=== PATIENT | male | born 1935 | race Caucasian/White ===

== ENCOUNTER → 2017-04-09 | Outpatient (CLI) | payer OTHER ==
[~2017-04-09] MED LIST: ASPIRIN EC81 M1; ASPIRIN EC81 M1 PO; CLOPIDOGREL75 MG; CLOPIDOGREL75 MG PO; DIAZEPAM 5 MG5 M1 PO; FERREX 150150 MG; FERREX 150150 MG PO; FISH OIL 1,001000 M2 PO; FISH OIL 1,2001 EAC3 PO; FISH OIL 500 M1 EAC1; HYDROCODON-ACE1 EAC7 PO; LISINOPRIL10 MG PO; NICOTINE TRANSD21 M1 TRANSDERM; PACERONE 200 M200 M1; PACERONE 200 M200 M1 PO; PHISOHEX148 ML; PHISOHEX148 ML TOP; PROTONIX40 M1 PO; RANITIDINE 150150 M1 PO; SIMVASTATIN20 MG; TOPROL XL25 MG; TOPROL XL25 MG PO; ZANTAC 150MG T150 M1 PO; ZOCOR 20 MG TAB20 M1 PO; ZYPREXA2.5 MG; ZYPREXA2.5 MG PO
== END ==
LOC: RAD 09:12
DX: R06.09 Other forms of dyspnea (principal)

== ENCOUNTER 2018-03-03 09:48 | Inpatient (IN) | payer OTHER ==
[~2018-03-03] VITALS: Ht 177.8 cm; Wt 84.4 kg
--- NOTE | ~2018-03-03 | HC ---
[facility] [place] [address] CONSULTATION Name: JUS CADET Room #: 218-P [facility] IN M.R.#: [id number] Admission: 03/03/18 Attend Phys: Wellington Gonzalez MD Discharge: 03/05/18 Date of : 35 Report #: [id number] THIS REPORT FOR: //name// CC: Panfilo Gonzalez MD DATE OF SERVICE: 03/04/2018 PULMONARY CONSULTATION REFERRAL PHYSICIAN: Wellington Gonzalez MD REASON FOR REFERRAL: Pneumothorax. HISTORY OF PRESENT ILLNESS: The patient is an 82-year-old white male who underwent placement of pacemaker. A followup chest x-ray shows small left-sided pneumothorax. A pulmonary consultation was requested. Presently, he denies any dyspnea. He was anticipating going home today. He is rather upset that he may not be able to. Otherwise, denies any chest pain, denies any hemoptysis, nausea, vomiting, diarrhea. PAST MEDICAL HISTORY: Notable for coronary artery disease, undergoing coronary artery bypass surgery in 2012 x 6, sick sinus syndrome, status post permanent pacemaker placement in the past, essential hypertension, dyslipidemia, dysphagia, esophageal stricture, status post dilatations in the past, history of tremors. ALLERGIES: None to medications. HOME MEDICATIONS: List reviewed in the MAR. FAMILY HISTORY: Noncontributory. SOCIAL HISTORY: The patient is . He has smoked in the past, but quit many years ago. Denies any alcohol use. REVIEW OF SYSTEMS: As mentioned above, otherwise 10-point system review negative. PHYSICAL EXAMINATION: GENERAL: He is awake, alert, in no distress. [facility] [address] [place] [address] CONSULTATION Name: JUS CADET Room #: 218-P [facility] IN M.R.#: [id number] Admission: 03/03/18 Attend Phys: Wellington Gonzalez MD Discharge: 03/05/18 Date of : 35 Report #: [id number] VITAL SIGNS: Temperature is 97.8 degrees Fahrenheit, pulse is 60, respiratory rate is 24, blood pressure 146/77 mmHg, saturation is 95%. HEENT: Normocephalic, atraumatic. NECK: Supple, without any lymphadenopathy or thyromegaly. CHEST: Breath sounds are fair bilaterally without any rales or wheezes. CARDIOVASCULAR: Normal S1, S2. No murmurs or gallop. There is no JVD. There is no carotid bruit. Pulses are 2+/4+ bilaterally. ABDOMEN: Soft, nontender, no organomegaly or masses felt. GENITOURINARY: Deferred. RECTAL: Deferred. EXTREMITIES: There is no edema, cyanosis or clubbing. LABORATORY DATA: Portable chest x-ray performed earlier this morning shows a small left-sided pneumothorax encompassing the left upper lobe and also left lower lobe area. It measures approximately 5% pneumothorax. Mild interstitial changes are seen in both bases. A permanent pacemaker and sternal wires are noted in the left upper chest area. Electrolytes normal, creatinine is 1.5. Liver function tests are normal. WBC 9000, hemoglobin 15.6, platelets are normal. Albumin 3.7. IMPRESSION: 1. Iatrogenic small left-sided pneumothorax in this 82-year-old white male with recent placement of a permanent pacemaker. Clinically, he is asymptomatic. 2. Coronary artery disease, status post coronary bypass surgery in 2011. 3. Sick sinus syndrome, status post replacement of permanent pacemaker. 3. Essential hypertension. 4. History of esophageal stricture. 5. Dyslipidemia. RECOMMENDATIONS: The patient is relatively asymptomatic and stable. There is definitely a small left-sided pneumothorax, but will recommend a followup chest x-ray in about 4 hours. If pneumothorax enlarges, would recommend placement of a small-bore chest tube. This was discussed with the patient. He seems somewhat upset that he may not be going home later today. <ELECTRONICALLY SIGNED> By: Bi Lux MD 03/05/18 1507 1223 1806 Bi Lux MD /nt
[~2018-03-03 09:48] MED LIST changes: -SIMVASTATIN20 MG; +SIMVASTATIN20 MG PO
[2018-03-03 10:16] VITALS: BP 137/70
[2018-03-03 10:29] LABS: ABSOLUTE NEUTROPHILS 5.4 thou/uL (1.4-8.2); EOSINOPHILS 2.9 % (0.0-3.0); HEMATOCRIT 45.4 % (42.0-52.0); HEMOGLOBIN 15.6 gm/dL (14.0-18.0); LYMPHOCYTES 25.2 % (24.0-44.0); MCH 30.8 pg (26.0-34.0); MCHC 34.3 g/dL (28.0-37.0); MCV 89.7 fL (80.0-100.0); MONOCYTES 10.9 % (1.0-8.0); PLATELET COUNT 185 thou/uL (150-400); RBC 5.06 mil/uL (4.50-6.00)
[2018-03-03 10:41] LABS: APTT 27.8 Seconds (24.5-32.8); PROTIME 10.6 Seconds (9.3-11.4)
[2018-03-03 10:42] LABS: CALCIUM 8.6 mg/dL (8.5-10.1); CREATININE 1.5 mg/dL (0.7-1.3); POTASSIUM 4.1 mmol/L (3.5-5.1)
[2018-03-03 10:47] LABS: ALBUMIN 3.7 g/dL (3.4-5.0); TOTAL BILIRUBIN 0.8 mg/dL (<0.1-1.0); TOTAL PROTEIN 7.8 g/dL (6.4-8.2)
[2018-03-03 15:30] VITALS: BP 143/78
[2018-03-03 20:01] VITALS: BP 157/73
[2018-03-03 23:56] VITALS: BP 148/76
[2018-03-04 05:46] VITALS: BP 119/59
[2018-03-04 05:47] VITALS: BP 119/59
[2018-03-04 08:15] VITALS: BP 122/64
[2018-03-04 11:29] VITALS: BP 146/77
[2018-03-04 15:53] VITALS: BP 128/74
[2018-03-04 20:15] VITALS: BP 124/70
[2018-03-05 04:55] VITALS: BP 147/67
[2018-03-05 07:25] VITALS: BP 101/63
[2018-03-05 11:04] VITALS: BP 101/63
== END 2018-03-05 11:50 | disposition home or self-care (01) | DRG 982 ==
LOC: CATH 09:48 → 2N 15:36 → CATH 15:37 → 2N 15:37 → ENTRNSPT 03-05 11:16 → EDTRNSPTSTS 03-05 11:33 → 2N 03-05 11:50
PROVIDERS: Internal Medicine Cardiovascular Disease
PROC: 0JPT0PZ Removal of Cardiac Rhythm Related Device from Trunk Subcutaneous Tissue and Fascia, Open Approach (ICD-10-PCS; principal; 2018-03-03)
PROC: 02PA3MZ Removal of Cardiac Lead from Heart, Percutaneous Approach (ICD-10-PCS; principal; 2018-03-03)
PROC: 0JH606Z Insertion of Pacemaker, Dual Chamber into Chest Subcutaneous Tissue and Fascia, Open Approach (ICD-10-PCS; principal; 2018-03-03)
PROC: 02H63JZ Insertion of Pacemaker Lead into Right Atrium, Percutaneous Approach (ICD-10-PCS; principal; 2018-03-03)
DX: J95.811 Postprocedural pneumothorax (principal); T82.110A Breakdown (mechanical) of cardiac electrode, initial encounter; J93.83 Other pneumothorax; Z45.018 Encounter for adjustment and management of other part of cardiac pacemaker; I25.10 Atherosclerotic heart disease of native coronary artery without angina pectoris; Z95.1 Presence of aortocoronary bypass graft; I10 Essential (primary) hypertension; E78.5 Hyperlipidemia, unspecified
CPT/HCPCS: 10081; 62110; 62900

== ENCOUNTER → 2018-03-11 | Outpatient (CLI) | payer OTHER | LOC: RAD 12:58 | DX: J84.9 Interstitial pulmonary disease, unspecified (principal) ==

== ENCOUNTER 2018-10-03 06:55 | Emergency (ER) | payer OTHER ==
[~2018-10-03] VITALS: Ht 177.8 cm; Wt 83.9 kg
[~2018-10-03 06:55] MED LIST changes: -ASPIRIN EC81 M1; -TOPROL XL25 MG
[2018-10-03 07:27] LABS: BASOPHILS 0.3 % (0.0-2.0); HEMATOCRIT 50.9 % (42.0-52.0); HEMOGLOBIN 17.2 gm/dL (14.0-18.0); LYMPHOCYTES 2.4 % (24.0-44.0); MCH 30.8 pg (26.0-34.0); MCHC 33.7 g/dL (28.0-37.0); MCV 91.3 fL (80.0-100.0); MONOCYTES 4.6 % (1.0-8.0); PLATELET COUNT 177 thou/uL (150-400); POLYS 92.7 % (36.0-66.0); RBC 5.58 mil/uL (4.50-6.00); RDW 14.8 % (10.5-14.5)
[2018-10-03 07:36] LABS: CALCIUM 9.8 mg/dL (8.5-10.1); CREATININE 1.9 mg/dL (0.7-1.3)
[2018-10-03 07:42] LABS: DIRECT BILIRUBIN 0.2 mg/dL (<0.1-0.3); TOTAL BILIRUBIN 0.9 mg/dL (<0.1-1.0); TOTAL PROTEIN 8.7 g/dL (6.4-8.2)
[2018-10-03 08:51] LABS: ICTOTEST (BILI CONFIRMATORY) Negative (Negative); URINE BILIRUBIN NEGATIVE (Negative); URINE BLOOD TRACE (Negative); URINE CLARITY SL HAZY; URINE COLOR DK YELLOW; URINE GLUCOSE-RANDOM* NEGATIVE (Negative); URINE KETONES TRACE (Negative); URINE LEUKOCYTES NEGATIVE (Negative); URINE NITRITE NEGATIVE (Negative); URINE PROTEIN (DIPSTICK) 2+ (Negative); URINE UROBILINOGEN 0.2 E.U./dl (0.2-1.0)
[2018-10-03 09:00] LABS: CASTS None Seen /LPF (None Seen); HYALINE CASTS 0-3 Few /LPF (None Seen); SQUAMOUS 4-10 Moderate /LPF (0-3)
[2018-10-03 09:01] LABS: AMORPHOUS URATES Moderate /LPF (None Seen); BACTERIA 1-9 Few /HPF (None Seen); URINE RBC 0-2 Rare /HPF (0-2); URINE WBC 0-5 Rare /HPF (0-5)
[2018-10-03] MEDS ORDERED: ZOFRAN ODT4 MG PO (10:07)
[2018-10-03 10:20] VITALS: BP 109/49
== END 2018-10-03 10:21 | disposition home or self-care (01) ==
LOC: ER 06:55
PROVIDERS: Emergency Medicine
DX: R10.33 Periumbilical pain (principal); D72.829 Elevated white blood cell count, unspecified; R19.7 Diarrhea, unspecified; R11.2 Nausea with vomiting, unspecified; N28.9 Disorder of kidney and ureter, unspecified; R74.0 Nonspecific elevation of levels of transaminase and lactic acid dehydrogenase [LDH]; F17.210 Nicotine dependence, cigarettes, uncomplicated; I10 Essential (primary) hypertension; E78.00 Pure hypercholesterolemia, unspecified; I25.10 Atherosclerotic heart disease of native coronary artery without angina pectoris; F03.90 Unspecified dementia, unspecified severity, without behavioral disturbance, psychotic disturbance, mood disturbance, and anxiety; Z85.828 Personal history of other malignant neoplasm of skin; Z85.038 Personal history of other malignant neoplasm of large intestine; Z86.73 Personal history of transient ischemic attack (TIA), and cerebral infarction without residual deficits

== ENCOUNTER 2018-10-05 09:36 | Inpatient (IN) | payer OTHER ==
[~2018-10-05] VITALS: Ht 177.8 cm; Wt 76.9 kg
[~2018-10-05 09:36] MED LIST changes: +ZOFRAN ODT4 MG PO
[2018-10-05 09:39] VITALS: BP 124/44
[2018-10-05 11:06] LABS: HEMATOCRIT 47.2 % (42.0-52.0); HEMOGLOBIN 15.9 gm/dL (14.0-18.0); MCH 30.7 pg (26.0-34.0); MCHC 33.7 g/dL (28.0-37.0); PLATELET COUNT 145 thou/uL (150-400); RBC 5.18 mil/uL (4.50-6.00); RDW 14.9 % (10.5-14.5); WBC 8.2 thou/uL (4.0-11.0)
[2018-10-05 11:13] LABS: CALCIUM 8.9 mg/dL (8.5-10.1); CREATININE 1.6 mg/dL (0.7-1.3); POTASSIUM 4.5 mmol/L (3.5-5.1)
[2018-10-05 11:18] LABS: ALBUMIN 3.3 g/dL (3.4-5.0); DIRECT BILIRUBIN 0.2 mg/dL (<0.1-0.3); TOTAL BILIRUBIN 0.6 mg/dL (<0.1-1.0); TOTAL PROTEIN 7.4 g/dL (6.4-8.2)
[2018-10-05 12:07] VITALS: BP 144/72
[2018-10-05 12:09] VITALS: BP 144/72
[2018-10-05 12:11] LABS: ABSOLUTE NEUTROPHILS 5.7 thou/uL (1.4-8.2)
[2018-10-05 12:12] LABS: ANISOCYTOSIS 1+; OVALOCYTES FEW
[2018-10-05] MEDS ORDERED: CARDIZEM30 MG PO (12:16)
[2018-10-05] MEDS ORDERED: QUINAPRIL HCL20 MG PO (12:16)
[2018-10-05] MEDS ORDERED: HYDROCHLOROTHIA25 M2 PO (12:16)
[2018-10-05] MEDS ORDERED: LIPITOR40 MG PO (12:17)
[2018-10-05] MEDS ORDERED: COUMADIN 4 MG TA4 M1 PO (12:17)
[2018-10-05] MEDS ORDERED: PROTONIX40 M1 PO (12:19)
[2018-10-05] MEDS ORDERED: LOPRESSOR25 PO (12:19)
[2018-10-05] MEDS ORDERED: SIMVASTATIN40 MG PO (12:19)
[2018-10-05] MEDS ORDERED: FISH OIL 1,2001 EAC4 PO (12:20)
[2018-10-05] MEDS ORDERED: ASPIR 8181 MG PO (12:20)
[2018-10-05] MEDS ORDERED: VALIUM5 MG PO (12:20)
[2018-10-05 19:10] VITALS: BP 123/77
--- NOTE | 2018-10-05 22:10 | EKG ---
[address] [place] [address] ELECTROCARDIOGRAM REPORT Name: JUS CADET Room #: 418-P ADM IN M.R.#: [id number] Admission: 10/05/18 Attend Phys: Michelle Golden Discharge: Date of : 35 Report #: [id number] THIS REPORT FOR: //name// [facility] ED Test Date: 2018-10-05 Test Time: 10:46:31 Pat Name: JUS CADET Department: Room: [facility] Gender: M Senior C Web Developer: as : 1935 Requested By: Luciana Guerra Order Number: [id number] MD: Wellington Gonzalez Measurements Intervals [place] Rate: 60 P: MT: 242 QRS: 94 QRSD: 132 T: 15 QT: 433 QTc: 433 Interpretive Statements Atrial-paced complexes Prolonged MT interval RBBB and LPFB Baseline wander in lead(s) V6 Compared to ECG 09/02/2016 08:15:14 First degree AV block now present Ventricular-paced complex(es) or rhythm no longer present Electronically Signed On 10-05-2018 22:09:53 STAMPING MACHINE OPERATOR by Wellington Gonzalez [email or web address] <ELECTRONICALLY SIGNED> By: Wellington Gonzalez MD 10/05/18 2209 1046 1046 Wellington Gonzalez MD /EPI
--- NOTE | 2018-10-06 02:20 | NUR ---
PROGRESS PT A/O X4. ABLE TO USE CALL LIGHT AND MAKE NEEDS KNOWN. NO NAUSEA AND VOMITING OR DIARRHEA THIS SHIFT.NORMAL SALINE INFUSING AT 125CC/HR ORDERED INTO NEW IV STARTED IN LUF. TOLERATING CLEAR LIQUIDS, VOIDING QS. POSSIBLE REHAB CONSULT FOR WEAKNESS. BUN AND CREATININE ELEVATED. CONTINUE TO MONITOR INTAKE AND OUTPUT, MONITOR AND TREAT NAUSEA AND VOMITING. ASSIST WITH ACTIVITIES FOR SAFETY UP WITH 1.
[2018-10-06 06:08] LABS: URINE BILIRUBIN NEGATIVE (Negative); URINE BLOOD NEGATIVE (Negative); URINE CLARITY CLEAR; URINE COLOR YELLOW; URINE GLUCOSE-RANDOM* NEGATIVE (Negative); URINE KETONES TRACE (Negative); URINE LEUKOCYTES NEGATIVE (Negative); URINE NITRITE NEGATIVE (Negative); URINE PROTEIN (DIPSTICK) NEGATIVE (Negative); URINE SPECIFIC GRAVITY 1.025 (1.005-1.035); URINE UROBILINOGEN 0.2 E.U./dl (0.2-1.0)
[2018-10-06 07:15] VITALS: BP 126/71
[2018-10-06 10:15] LABS: CALCIUM 8.3 mg/dL (8.5-10.1); CREATININE 1.3 mg/dL (0.7-1.3); POTASSIUM 3.9 mmol/L (3.5-5.1)
--- NOTE | 2018-10-06 12:21 | NUR ---
ASSUMED CARE OF PT AT 0700. ASSESSMENT COMPLETED AND CHARTED. A&O,X4. DENIES PAIN, N/V/D. PT DOES NOT APPEAR TO BE IN ANY DISTRESS. ROOM AIR, NO SOA. ACTIVE BOWEL SOUNDS, LAST BM YESTERDAY. NO PROBLEMS VOIDING, PER URINAL NOTED. TOLERATING CLEARS DIET, TO ADVANCE DIET ORDERED. PT IS CURRENTLY SITTING UP IN THE CHAIR. WILL CONTINUE TO MONITOR.
[2018-10-06 14:04] VITALS: BP 126/71
--- NOTE | 2018-10-06 14:36 | NUR ---
NEW DISCHARGE ORDERS. PT TOLERATING REGULAR LUNCH, NO N/V/D. UP TO WALK IN HALLWAYS. D/C INFORMATION GIVEN TO PT AND DAUGHTER AT BEDSIDE. NO NEW SCRIPTS. IV REMOVED, NO BLEEDING NOTED. PT HAD CLOTHES, DENTURES, NECKLACE. PT LEFT IN STABLE CONDITION VIA WHEELCHAIR AT 14:35.
--- NOTE | 2018-10-06 14:43 | NUR ---
ASSESSMENT-PT LIVES AT THE [facility] WITH HIS JUST [address] FROM [facility]. PT SAYS HE WALKS ON HIS WON AND DOES HIS OWN ADLS. IS 78 YEARS OLD AND IN GOOD HEALTH AND ABLE TO ASSIST HIME. THEY AHVE A DTR HERE IN THE AREA TOO. BOTH PT AND DRIVE. PT SAYS HE HAS NOT HAD ANY HH SERVICES IN THE PAST. PT DENIES ANY DC NEEDS AT THIS TIME.
--- NOTE | 2018-10-07 09:23 | H ---
[facility] [place] [address] [address] HISTORY AND PHYSICAL Name: JUS CADET Room #: 418-P [facility] IN M.R.#: [id number] Admission: 10/05/18 Attend Phys: Michelle Golden Discharge: 10/06/18 Date of : 35 Report #: [id number] THIS REPORT FOR: //name// CC: Panfilo Benedict DATE OF SERVICE: 10/06/2018 CHIEF COMPLAINT: Nausea, vomiting, diarrhea. HISTORY OF PRESENT ILLNESS: The patient is an 82-year-old gentleman who came to the Emergency Room with a 4-day history of diarrhea. He has had watery bowel movements. He has had no abdominal pain, no bleeding. He has had some nausea, but no major vomiting until yesterday in the Emergency Room. He has had no fever. Overnight, he feels much improved. He has had no GI symptoms at all. He has been tolerating clear liquids without incident. PAST MEDICAL HISTORY: Familial tremor, hypertension, dyslipidemia, remote history of colon cancer with right hemicolectomy in 2003. He has had previous esophageal stricture with dilatation 2010, coronary artery disease, CABG in 2014, mild dementia. PAST SURGICAL HISTORY: As above. FAMILY HISTORY: Noncontributory. SOCIAL HISTORY: No chronic alcohol or tobacco use. ALLERGIES: None. MEDICATIONS: Zocor, Protonix, metoprolol, Valium, aspirin, fish oil. REVIEW OF SYSTEMS: Denies headache, chest pain, shortness of breath, abdominal pain, nausea, vomiting, diarrhea, constipation, dysuria, syncope. OBJECTIVE: VITAL SIGNS: Temperature 36.2, pulse 61, respirations 19, blood pressure 126/71, O2 sat 96% on room air. GENERAL: He is awake and alert, in no distress. HEAD AND NECK: Unremarkable. LUNGS: Clear. HEART: Regular. ABDOMEN: Soft, normoactive bowel sounds. No rebound or guarding. EXTREMITIES: No cyanosis, clubbing or edema. NEUROLOGIC: Motor strength 4/5 throughout. LABORATORY DATA: Creatinine has normalized to 1.3. Other laboratory data [address] [address] HISTORY AND PHYSICAL Name: JUS CADET Room #: 418-P [facility] IN M.R.#: [id number] Admission: 10/05/18 Attend Phys: Michelle Golden Discharge: 10/06/18 Date of : 35 Report #: [id number] negative including normal white count. UA is negative. ASSESSMENT: Gastroenteritis. PLAN: He has responded to conservative treatment overnight. Advance his diet and activity. If he can tolerate this, he can go home later today. <ELECTRONICALLY SIGNED> By: Matt Grimm MD 10/07/18 0923 1203 1214 Matt Grimm MD /nt
--- NOTE | 2018-10-09 10:04 | D ---
[facility] [place] [address] DISCHARGE SUMMARY Name: JUS CADET Room #: 418-P DIS IN M.R.#: [id number] Admission: 10/05/18 Attend Phys: Michelle Golden Discharge: 10/06/18 Date of : 35 Report #: [id number] THIS REPORT FOR: //name// CC: Panfilo Benedict DATE OF SERVICE: 10/06/2018 FINAL DIAGNOSIS: Acute gastroenteritis. HOSPITAL COURSE: The patient was admitted with nausea, vomiting and diarrhea. He had a slightly elevated creatinine, which was consistent with a prerenal state from his GI loss. He was treated symptomatically and improved overnight with IV fluids. His creatinine normalized to 1.3. He was tolerating a regular diet. Urinalysis was negative. Urine culture was negative and he was up and walking. He had no other interval complication. DISPOSITION: He is discharged home with diet and activity as tolerated. Follow up with Dr. Benedict in 2-4 weeks. Resume usual medications. <ELECTRONICALLY SIGNED> By: Matt Grimm MD 10/09/18 1004 1321 1354 Matt Grimm MD /nt
== END 2018-10-06 14:30 | disposition home or self-care (01) | DRG 391 ==
LOC: ER 09:36 → EROBS 11:49 → 4E 11:49 → ENTRNSPT 10-06 14:26 → EDTRNSPTSTS 10-06 14:29 → 4E 10-06 14:30
PROVIDERS: Emergency Medicine; Internal Medicine Geriatric Medicine; ADMIT Internal Medicine
DX: K52.9 Noninfective gastroenteritis and colitis, unspecified (principal); N17.0 Acute kidney failure with tubular necrosis; I10 Essential (primary) hypertension; E78.00 Pure hypercholesterolemia, unspecified; I25.10 Atherosclerotic heart disease of native coronary artery without angina pectoris; F03.90 Unspecified dementia, unspecified severity, without behavioral disturbance, psychotic disturbance, mood disturbance, and anxiety; F17.210 Nicotine dependence, cigarettes, uncomplicated; Z86.73 Personal history of transient ischemic attack (TIA), and cerebral infarction without residual deficits; Z85.038 Personal history of other malignant neoplasm of large intestine; Z85.828 Personal history of other malignant neoplasm of skin; Z95.1 Presence of aortocoronary bypass graft; Z79.82 Long term (current) use of aspirin; Z79.899 Other long term (current) drug therapy
CPT/HCPCS: 10084

== ENCOUNTER → 2019-10-07 | Outpatient (CLI) | payer OTHER ==
[~2019-10-07] VITALS: Ht 177.8 cm; Wt 79.4 kg
[~2019-10-07] MED LIST changes: +ASPIR 8181 MG PO; +CARDIZEM30 MG PO; +COUMADIN 4 MG TA4 M1 PO; +FISH OIL 1,2001 EAC4 PO; +HYDROCHLOROTHIA25 M2 PO; +LIPITOR40 MG PO; +LOPRESSOR25 PO; +QUINAPRIL HCL20 MG PO; +SIMVASTATIN40 MG PO; +VALIUM5 MG PO
--- NOTE | 2019-10-08 16:06 | PATH ---
[facility] [address] [place] [address] PATHOLOGY RPT PROCEDURE Name: JUS FAITH Room #: REG CL M.R.#: [id number] Admission: 10/07/19 Date of : 35 Discharge: Report #: [id number] Path Case #: [id number] LCA Accession Number: [id number] . 01 Material submitted: . PART A: colon - POLYP AT DESCENDING COLON. Modifiers: descending PART B: colon - POLYP AT SIGMOID. Modifiers: sigmoid PART C: rectum - POLYP AT RECTUM . 01 Clinical history: . Dysphagia, history of polyps . 02 Diagnosis: A. Polyp, at descending colon, endoscopic biopsy: - Tubular adenoma. - Negative for high-grade dysplasia. . B. Polyp, at sigmoid, endoscopic biopsy: - Lymphoid aggregate and hyperplastic changes. - Negative for dysplasia. . C. Polyp, at rectum, endoscopic biopsy: - Hyperplastic polyp. - Negative for dysplasia. . (IUV:jonnie; 10/08/2019) MBR 10/08/2019 1316 Local . 02 Electronically signed: . Sari Stockton MD, Pathologist NPI- [id number] . 01 Gross description: . A. The specimen is received in formalin, labeled "Jus Faith, polyp at descending colon". Received are two segments of pale causey soft tissue measuring 0.5 cm each in maximum dimensions. The specimen is submitted entirely in cassette A1. . B. The specimen is received in formalin, labeled "Jus Faith, polyp at sigmoid". Received is a segment of light brown soft tissue measuring 0.3 cm in maximum dimensions. The specimen is submitted entirely in cassette B1. . C. The specimen is received in formalin, labeled "Jus Faith, polyp at rectum x2". Received is a segment of pale causey soft tissue measuring 0.3 cm in maximum dimensions. The specimen is submitted entirely in cassette C1. Upon careful inspection and filtration, no additional tissue [address] [address] PATHOLOGY RPT PROCEDURE Name: JUS FAITH Room #: REG [facility].#: [id number] Admission: 10/07/19 Date of : 35 Discharge: Report #: [id number] Path Case #: [id number] is found remaining within the container. (CAA; 10/07/2019) QAC/QAC 10/07/2019 1538 Local . 02 Pathologist provided ICD-10: D12.4, K63.9, K62.1 . 02 CPT . 631867, 974901, 184592 Specimen Comment: A courtesy copy of this report has been sent to [phone] Specimen Comment: Report sent to Performed at: [address], [place] [id number] MD Taiwo Bar MD Phone: [phone] Performed at: [address] [id number] MD Sari Stockton MD Phone: [phone]
--- NOTE | 2019-10-14 10:57 | P ---
[facility] [place] [address] PROCEDURE REPORT Name: JUS CADET Room #: REG [facility].#: [id number] Admission: 10/07/19 Attend Phys: Michael Devi Discharge: Date of : 35 Report #: [id number] THIS REPORT FOR: //name// CC: Kevin Benedict DATE OF SERVICE: 10/07/2019 PROCEDURE PERFORMED: Colonoscopy with biopsies. HISTORY OF PRESENT ILLNESS: The patient is an 83-year-old male with a history of colon cancer, status post right hemicolectomy. Last colonoscopy by myself was in 2016. He had several tubular adenomatous polyps removed at that time. He is here for routine followup. DESCRIPTION OF PROCEDURE: The risks and benefits of the procedure were explained to the patient, those risks including but not limited to bleeding, perforation and the risk of sedation. He understood these risks and gave informed consent. Sedation was given using propofol per anesthesia. Next, a digital rectal exam was initially performed, which was normal. Next, using a standard Olympus colonoscope, the scope was placed in the patient's anus and advanced under direct vision to the right colon, at which point, the surgical anastomosis was once again noted. This was well healed and widely patent. The scope was then slowly withdrawn. The remaining transverse colon was normal. In the descending colon, a 4 mm sessile polyp was noted. This was removed with cold forceps. In the sigmoid colon, multiple diverticula were noted. No evidence of inflammation. A 3 mm sessile polyp was noted and removed with cold forceps. In the rectum, two 3 mm sessile polyps, both removed with cold forceps. On retroflexion, small nonbleeding internal hemorrhoids were noted. The scope was then withdrawn and the procedure terminated. The patient tolerated the procedure well. IMPRESSION: 1. Small colonic polyps as described above. 2. Sigmoid diverticulosis. 3. Internal hemorrhoids. 4. Otherwise, normal colonoscopy. RECOMMENDATIONS: 1. Await biopsy results. 2. Observe at this point due to the patient's age. [address] [address] PROCEDURE REPORT Name: JUS CADET Room #: REG [facility] Valeria#: [id number] Admission: 10/07/19 Attend Phys: Michael Devi Discharge: Date of : 35 Report #: [id number] Thank you for allowing me to participate in his care. <ELECTRONICALLY SIGNED> By: Michael Starr MD 10/14/19 1057 1044 2048 Michael Starr MD /nt
--- NOTE | 2019-10-14 10:57 | P ---
[facility] [place] [address] PROCEDURE REPORT Name: JUS CADET Room #: REG [facility].#: [id number] Admission: 10/07/19 Attend Phys: Michael Devi Discharge: Date of : 35 Report #: [id number] THIS REPORT FOR: //name// CC: Kevin Benedict DATE OF SERVICE: 10/07/2019 PROCEDURE PERFORMED: Upper endoscopy with esophageal dilation. HISTORY OF PRESENT ILLNESS: The patient is an 83-year-old male with recurrent dysphagia, underwent an upper endoscopy by myself in 2016. Last upper endoscopy being in 2016 with dilation at that time. He has a known Schatzki's ring. He is having dysphagia again to solids to the point of regurgitation. He also has a previous history of colon cancer and colon polyps. He is scheduled for EGD and colonoscopy today. He has a history of reflux and takes PPI therapy on a daily basis. DESCRIPTION OF PROCEDURE: The risks and benefits of the procedure were explained to the patient, those risks including but not limited to bleeding, perforation and the risk of sedation. He understood these risks and gave informed consent. Sedation was given using propofol per anesthesia. Next, using a standard Olympus upper endoscope, the scope was placed in the patient's mouth and advanced under direct vision through the esophagus, stomach and into the second portion of the duodenum. The upper and mid esophagus was normal in appearance other than being mildly tortuous. In the distal esophagus, once again a Schatzki's ring was noted. The scope did advance through this area with minimal resistance. Upon entering the stomach, again a medium-sized hiatal hernia was noted. Overall, the gastric mucosa was normal. The pylorus was normal and patent. The duodenal bulb, first and second portion were all normal. The scope was then brought back up into the patient's stomach and a Savary guidewire was inserted through the scope, leaving the guidewire in place as the scope was then withdrawn. Next, a 42-Citizen [place] followed by a 45-Citizen [place] Savary dilation was performed with replacing the scope in between each time. After the 45-[place]izen [place], there was a mucosal tear at the Schatzki's ring. No further dilations were performed. At this point, the scope was then withdrawn and the procedure terminated. The patient tolerated the procedure well. IMPRESSION: 1. Schatzki's ring, status post dilation as described above. 2. Hiatal hernia. 3. Otherwise, normal upper endoscopy. RECOMMENDATIONS: 1. Observe the patient post-dilation. [address] [address] PROCEDURE REPORT Name: JUS CADET Room #: REG [facility]#: [id number] Admission: 10/07/19 Attend Phys: Michael Devi Discharge: Date of : 35 Report #: [id number] 2. We will proceed with colonoscopy next today. Thank you for allowing me to participate in his care. <ELECTRONICALLY SIGNED> By: Michael Starr MD 10/14/19 1057 1042 2046 Michael Starr MD /nt
== END | disposition home or self-care (01) ==
LOC: GI 07:44
DX: Z12.11 Encounter for screening for malignant neoplasm of colon (principal); Z85.038 Personal history of other malignant neoplasm of large intestine; Z86.010 Personal history of colon polyps; D12.4 Benign neoplasm of descending colon; K62.1 Rectal polyp; K63.9 Disease of intestine, unspecified; K57.30 Diverticulosis of large intestine without perforation or abscess without bleeding; K64.8 Other hemorrhoids; K22.2 Esophageal obstruction; K44.9 Diaphragmatic hernia without obstruction or gangrene; R13.19 Other dysphagia; K21.9 Gastro-esophageal reflux disease without esophagitis; I10 Essential (primary) hypertension; I25.10 Atherosclerotic heart disease of native coronary artery without angina pectoris; E78.00 Pure hypercholesterolemia, unspecified; Z98.890 Other specified postprocedural states; Z79.899 Other long term (current) drug therapy; Z87.891 Personal history of nicotine dependence; Z95.0 Presence of cardiac pacemaker; Z95.1 Presence of aortocoronary bypass graft; Z85.828 Personal history of other malignant neoplasm of skin; Z98.0 Intestinal bypass and anastomosis status; Z86.73 Personal history of transient ischemic attack (TIA), and cerebral infarction without residual deficits; Z79.82 Long term (current) use of aspirin
CPT/HCPCS: 62110; 62900

== ENCOUNTER → 2020-02-12 | Outpatient (CLI) | payer OTHER | LOC: SJCVC 10:31 | DX: R94.31 Abnormal electrocardiogram [ECG] [EKG] (principal); I45.10 Unspecified right bundle-branch block; I25.10 Atherosclerotic heart disease of native coronary artery without angina pectoris; I48.0 Paroxysmal atrial fibrillation; I10 Essential (primary) hypertension; E78.5 Hyperlipidemia, unspecified; G30.1 Alzheimer's disease with late onset; F02.80 Dementia in other diseases classified elsewhere, unspecified severity, without behavioral disturbance, psychotic disturbance, mood disturbance, and anxiety; Z95.0 Presence of cardiac pacemaker ==

== ENCOUNTER → 2020-08-15 | Outpatient (CLI) | payer OTHER | LOC: SJCVC 13:00 | PROVIDERS: ATTEND Internal Medicine | DX: R94.31 Abnormal electrocardiogram [ECG] [EKG] (principal); I45.10 Unspecified right bundle-branch block; I25.10 Atherosclerotic heart disease of native coronary artery without angina pectoris; I48.0 Paroxysmal atrial fibrillation; I10 Essential (primary) hypertension; E78.5 Hyperlipidemia, unspecified; G30.1 Alzheimer's disease with late onset; F02.80 Dementia in other diseases classified elsewhere, unspecified severity, without behavioral disturbance, psychotic disturbance, mood disturbance, and anxiety; Z95.0 Presence of cardiac pacemaker; Z95.1 Presence of aortocoronary bypass graft; Z79.82 Long term (current) use of aspirin; Z79.899 Other long term (current) drug therapy; Z87.891 Personal history of nicotine dependence ==

== ENCOUNTER → 2021-03-02 | Outpatient (CLI) | payer OTHER | LOC: SJCVC 10:26 | PROVIDERS: ATTEND Internal Medicine | DX: R94.31 Abnormal electrocardiogram [ECG] [EKG] (principal); I45.10 Unspecified right bundle-branch block; I25.10 Atherosclerotic heart disease of native coronary artery without angina pectoris; I48.0 Paroxysmal atrial fibrillation; I10 Essential (primary) hypertension; E78.2 Mixed hyperlipidemia; G30.1 Alzheimer's disease with late onset; F02.80 Dementia in other diseases classified elsewhere, unspecified severity, without behavioral disturbance, psychotic disturbance, mood disturbance, and anxiety; Z95.0 Presence of cardiac pacemaker; Z79.82 Long term (current) use of aspirin; Z79.899 Other long term (current) drug therapy; Z87.891 Personal history of nicotine dependence ==

== ENCOUNTER 2021-07-18 17:47 | Inpatient (IN) | payer OTHER ==
[~2021-07-18] VITALS: Ht 177.8 cm; Wt 83.7 kg
[2021-07-18 17:52] VITALS: BP 125/77; BP 135/70
[2021-07-18 19:50] LABS: ABSOLUTE NEUTROPHILS 9.6 thou/uL (1.4-8.2); BASOPHILS 0.8 % (0.0-2.0); EOSINOPHILS 0.9 % (0.0-3.0); HEMATOCRIT 40.9 % (42.0-52.0); HEMOGLOBIN 13.6 gm/dL (14.0-18.0); LYMPHOCYTES 16.7 % (24.0-44.0); MCH 30.3 pg (26.0-34.0); MCHC 33.2 g/dL (28.0-37.0); MCV 91.4 fL (80.0-100.0); POLYS 74.6 % (36.0-66.0); RBC 4.48 mil/uL (4.50-6.00); RDW 15.7 % (10.5-14.5); WBC 12.9 thou/uL (4.0-11.0)
[2021-07-18 19:57] LABS: CREATININE 1.6 mg/dL (0.7-1.3)
[2021-07-18 20:02] LABS: ALBUMIN 3.3 g/dL (3.4-5.0); TOTAL BILIRUBIN 0.7 mg/dL (0.2-1.0); TOTAL PROTEIN 7.3 g/dL (6.4-8.2)
[2021-07-18 20:03] LABS: POTASSIUM 4.8 mmol/L (3.5-5.1)
[2021-07-18 20:45] LABS: PLATELET COUNT 151 thou/uL (150-400)
[2021-07-19] VITALS (7 sets, daily range): BP systolic 106–143; BP diastolic 49–71
--- NOTE | 2021-07-19 01:29 | NUR ---
ATTEMPTED TO GIVE REPORT AT THIS TIME, TOLD NURSE IS UNAVAILABLE TAKING A PT TO CT
--- NOTE | 2021-07-19 06:03 | NUR ---
PT ARRIVED TO UNIT FROM ED AROUND 0200. PT ASSESSED TO BE AOX3 MALE THAT IS [place] AND HAS SUSPECTED GI BLEED. COMPLETED ALL ADMIT CHARTING AND CHECKLIST, CONSENTS TO BE SIGNED DURING THE DAY BY DPOA PER PT. PT RUNS NSR WITH 1* HB. PT RESTED THROUGHOUT THE REST OF THE NIGHT WITH NO COMPLAINTS, VSS. NEED TO CLARIFY WITH HIM AND FAMILY DURING THE DAY WHAT HIS CODE STATUS IS. WILL CONTINUE TO MONITOR.
[2021-07-19 08:41] LABS: CALCIUM 8.2 mg/dL (8.5-10.1); CREATININE 1.4 mg/dL (0.7-1.3); POTASSIUM 4.2 mmol/L (3.5-5.1)
[2021-07-19 10:45] LABS: HEMATOCRIT 29.1 % (42.0-52.0); MCH 30.1 pg (26.0-34.0); MCHC 33.7 g/dL (28.0-37.0); MCV 89.3 fL (80.0-100.0); RBC 3.25 mil/uL (4.50-6.00); RDW 15.7 % (10.5-14.5); WBC 15.9 thou/uL (4.0-11.0)
[2021-07-19 10:51] LABS: HEMOGLOBIN 9.8 gm/dL (14.0-18.0)
--- NOTE | 2021-07-19 14:01 | NUR ---
Assumed pt care at 7am.Assessment completed.vss.Pt in bed very anxious about going for gi procedure today. Dpoa here, signed all admission paper work. Dr Goss and Bradley here,order noted. Pt dpoa notified about pt going for egd today at 1400. Pt was picked up by gi lab rns at 1345. Will continue to monitor.
[2021-07-19 15:33] LABS: APTT 27.1 Seconds (24.5-32.8); INR 1.05; PROTIME 11.4 Seconds (10.5-12.1)
[2021-07-20 03:06] LABS: GLYCOHEMOGLOBIN (HGB A1C) 6.2 % (4.8-5.6)
[2021-07-20 03:07] VITALS: BP 110/46
--- NOTE | 2021-07-20 03:48 | NUR ---
ASSUMED PT CARE THIS PM. PT IS ALERT AND OREINTED. VS ARE WITHIN NORMAL RANGE. PT DID NOT C/O PAIN. NO VISIBLE SIGN OF DISTRESS WAS NOTED. PT IS ON RA. FALL PRECAUTIONS IN PLACE. WILL CONTINUE TO MONITOR.
[2021-07-20 05:20] LABS: HEMATOCRIT 26.2 % (42.0-52.0); HEMOGLOBIN 8.9 gm/dL (14.0-18.0); MCHC 33.8 g/dL (28.0-37.0); MCV 91.8 fL (80.0-100.0); RBC 2.86 mil/uL (4.50-6.00); RDW 15.9 % (10.5-14.5); WBC 10.2 thou/uL (4.0-11.0)
[2021-07-20 08:06] VITALS: BP 93/48
[2021-07-20 08:31] VITALS: BP 130/72
--- NOTE | 2021-07-20 10:49 | NUR ---
ASSUMED PT CARE THIS AM. PT IS ALERT & ORIENTED X4. PT HAS IV SITE ON RFA SALINE LOCKED. PT USES URINAL AND BEDSIDE COMMODE. PT TOLERATED FULL LIQUID DIET THIS AM. PT IS ON ROOM AIR. RECHECK BP THIS AM. PT DAUGHTER WAS AT THE BEDSIDE. PT ON THE BED, BED ON THE LOWEST POSITION, SIDE RAILS UP, CALL LIGHT WITHIN REACH. WILL CONTINUE TO MONITOR PT. FOLLOW POC.
--- NOTE | 2021-07-20 13:43 | NUR ---
PT ADMITTED RELATED TO GI BLEED AND GASTROENTERITIS. CM REVIEWED CHART AND SPOKE WITH CARE TEAM. CM MET WITH PT AT BEDSIDE YESTERDAY. PT APPEARED TO BE A&O X4. CM ROLE INTRODUCED. PT INDICATED HE LIVES AT [address] PT INDICATED HE HAS A FWW FOR USE AT HOME. PT INDICATED NO HH OR OP HX. PT INDICATED HE PLANS TO RETURN TO HIS [place] APARTMENT ONCE MEDICALLY STABLE. CM CALLED AND SPOKE WITH PT'S DTR MILI AND SHE CONFIRMED THAT ABOVE. THEY ARE RECEPTIVE TO HH IF NEEDED UPON DC. CM FOLLOWING REGARDING DC PLANNING.
[2021-07-20 16:34] VITALS: BP 118/52
--- NOTE | 2021-07-20 17:06 | PATH ---
[facility] [address] [place] [address] PATHOLOGY RPT PROCEDURE Name: JUS FAITH Room #: 456-P [facility] IN M.R.#: [id number] Admission: 07/18/21 Date of : 35 Discharge: Report #: [id number] Path Case #: [id number] LCA Accession Number: [id number] . 01 Material submitted: . stomach - ANTRUM FOR H. PYLORI . 01 Clinical history: . ESOPHAGOGASTRODUODENOSCOPY ESOPHAGEAL STRICTURE, ESOPHAGITIS, HIATAL HERNIA . 02 Diagnosis: Gastric mucosa, antrum for H. pylori, endoscopic biopsy: - Mild reactive gastropathy. - Negative for intestinal metaplasia or atrophy. - Negative for Helicobacter pylori (properly controlled immunohistochemical stain performed). (IUV:corn husk baler; 07/20/2021) MBR 07/20/2021 1317 Local . 02 Electronically signed: . Sari Stockton MD, Pathologist NPI- [id number] . 01 Gross description: . The specimen is submitted in formalin, labeled "Jus Faith, antrum for H. pylori". Received are 2 segments of pale causey tissue ranging in size from 0.3 to 0.4 cm in maximum dimensions. The specimen is submitted entirely in cassette A1. ([facility]; 07/19/2021) NRI/NRI 07/19/2021 1834 Local . 02 Pathologist provided ICD-10: K31.9 . 02 CPT . 959715, G87675 Specimen Comment: A courtesy copy of this report has been sent to [phone] Specimen Comment: [phone], Specimen Comment: Report sent to , DR DAVEY / DR GARCIA Performed at: [address] [id number] MD Osman Swenson MD Phone: [phone] Performed at: [address] [facility] [address] [place] [address] PATHOLOGY RPT PROCEDURE Name: JUS FAITH POLY Room #: 456-P ADM IN M.R.#: [id number] Admission: 07/18/21 Date of : 35 Discharge: Report #: [id number] Path Case #: [id number] [address] [place] [id number] MD Sari Stockton MD Phone: [phone]
[2021-07-20 21:18] VITALS: BP 104/53
[2021-07-20 23:26] VITALS: BP 127/60
--- NOTE | 2021-07-21 03:55 | NUR ---
ASSUMED PT CARE THIS PM. PT IS ALERT AND ORIENTED X4. VS ARE WITHIN NORMAL RANGE. MEDS WERE GIVEN PER EMAR ORDERS. NO VISIBLE SIGN OF DISTRESS WAS NOTED. FALL PREACAUTIONS IN PLACE. WILL CONTINUE TO MONITOR.
[2021-07-21 04:25] VITALS: BP 124/50
[2021-07-21 06:13] LABS: HEMATOCRIT 27.5 % (42.0-52.0); HEMOGLOBIN 9.2 gm/dL (14.0-18.0); MCH 31.1 pg (26.0-34.0); MCHC 33.4 g/dL (28.0-37.0); MCV 93.1 fL (80.0-100.0); RBC 2.96 mil/uL (4.50-6.00); RDW 16.2 % (10.5-14.5); WBC 9.6 thou/uL (4.0-11.0)
[2021-07-21 07:00] VITALS: BP 155/58
[2021-07-21 09:53] VITALS: BP 155/58
[2021-07-21 12:00] VITALS: BP 119/51
--- NOTE | 2021-07-21 14:41 | NUR ---
DISCONTINUE IV AND TELE. WENT OVER DISCHARGE ORDERS WITH PT'S DAUGHTER WHO UBNDERSTANDS ALL ORDERS. WILL DISCHARGE TO HOME VIA PRIVATE VEHICLE.
--- NOTE | 2021-07-21 15:11 | NUR ---
CM MET WITH PT AND DTR MILI AT BEDSIDE THIS AM. PHYSICIAN HAD ALREADY PUT IN DC ORDERS. CM INDICATED THEY WERE RECOMMENDEDING HH UPON DC. NO PREFERANCE INDICATED. CM SPOKE WITH THEM ABOUT SENDING REFERRAL TO [facility] AND HAVING LIAISON REACH OUT TO THEM. PT'S DTR NEEDED TO LEAVE FOR MEETING AT 10:30. SHE WAS TO RETURN FOR DC AT 1400. [facility] CAN ACCEPT ORDERS FAXED. [employer] CALLED PT'S DTR AROUND 1420. DTR APPEARED TO BE ANNOYED THAT PT WASN'T IMEDIATLY READY TO DC AT 1400. PT TO DC [facility]CA[facility] TO [place] APARTMENT AT [facility] HH VIA DTR MILI. NO OTHER CM INTERVENTION INDICATED. CASE CLOSED.
== END 2021-07-21 15:30 | disposition home health service (06) | DRG 379 ==
LOC: ER 17:47 → EROBS 21:28 → 4W 21:28
PROVIDERS: Emergency Medicine; Hospitalist; Nurse Practitioner Family; ADMIT Hospitalist; ATTEND Hospitalist
PROC: 0DB78ZX Excision of Stomach, Pylorus, Via Natural or Artificial Opening Endoscopic, Diagnostic (ICD-10-PCS; principal; 2021-07-19)
DX: K25.4 Chronic or unspecified gastric ulcer with hemorrhage (principal); K22.11 Ulcer of esophagus with bleeding; K92.0 Hematemesis; N18.9 Chronic kidney disease, unspecified; R73.9 Hyperglycemia, unspecified; I49.5 Sick sinus syndrome; K21.9 Gastro-esophageal reflux disease without esophagitis; K52.9 Noninfective gastroenteritis and colitis, unspecified; Z66 Do not resuscitate; F03.90 Unspecified dementia, unspecified severity, without behavioral disturbance, psychotic disturbance, mood disturbance, and anxiety; K44.9 Diaphragmatic hernia without obstruction or gangrene; I12.9 Hypertensive chronic kidney disease with stage 1 through stage 4 chronic kidney disease, or unspecified chronic kidney disease; K22.2 Esophageal obstruction; Z20.822 Contact with and (suspected) exposure to COVID-19; I25.10 Atherosclerotic heart disease of native coronary artery without angina pectoris; E78.5 Hyperlipidemia, unspecified; E78.00 Pure hypercholesterolemia, unspecified; Z85.038 Personal history of other malignant neoplasm of large intestine; Z87.891 Personal history of nicotine dependence; Z95.1 Presence of aortocoronary bypass graft; Z86.73 Personal history of transient ischemic attack (TIA), and cerebral infarction without residual deficits; Z95.0 Presence of cardiac pacemaker; I25.2 Old myocardial infarction; Z79.82 Long term (current) use of aspirin; Z79.899 Other long term (current) drug therapy
CPT/HCPCS: 10045; 62110; 62900; 70005